=== PATIENT | female | born 1980 | race African-American/Black ===

== ENCOUNTER 2017-02-05 15:25 | Emergency (ER) | payer MEDICAID ==
[~2017-02-05] VITALS: Ht 167.6 cm; Wt 113.4 kg
[~2017-02-05 15:25] MED LIST: AMOXICILLIN500 MG ORAL; HYDROCODON-ACE1 EA18 PO; IBUPROFEN600 MG ORAL; MACROBID100 MG ORAL; METRONIDAZOLE250 MG ORAL; NKM; PENICILLIN V P500 MG PO; TYLENOL EXTRA500 MG ORAL; ZOFRAN ODT4 MG ORAL
[2017-02-05] MEDS ORDERED: IBUPROFEN600 MG ORAL (15:56)
[2017-02-05] MEDS ORDERED: TESSALON PERLE100 MG ORAL (15:56)
[2017-02-05] MEDS ORDERED: AMOXICILLIN500 MG ORAL (15:56)
[2017-02-05 16:09] VITALS: BP 111/76
--- NOTE | 2017-02-05 22:55 | Emergency Room Report ---
History of Present Illness General Chief Complaint: Sore Throat Source: Patient Present Illness HPI The pt is a 36 yo F presenting for sore throat and cough for the past 2 days. Pain is worsening and is now a 7/10 dull ache. Does not radiate. Pain worse with cough. She denies any sick contacts or recent travel. She has not tried any medications. She denies any other symptoms such as N, V, F, chills, SOB, CP , rash, hemoptysis Allergies: Coded Allergies: No Known Allergies (Unverified , 05/21/13) Patient History Past Medical History: see triage record Pertinent Family History: none Last Menstrual Period: 02/03/17 Now: No Reviewed Nursing Documentation: PMH: Agreed, PSxH: Agreed Nursing Documentation-PMH Past Medical History: No Stated History Review of Systems All Other Systems: negative except mentioned in HPI Physical Exam Vital Signs Date Time Temp Pulse Resp B/P Pulse Ox O2 Delivery O2 Flow Rate FiO2 02/05/17 15:42 98.2 80 18 122/81 100 Room Air Sp02 EP Interpretation: reviewed, normal General Appearance: no apparent distress, alert, GCS 15, non-toxic Head: normocephalic, atraumatic Eyes: bilateral eye PERRL, bilateral eye normal inspection ENT: hearing grossly normal, no angioedema, normal voice, tonsillar swelling, pharyngeal erythema, tonsillar exudate Neck: full range of motion, supple/symm/no masses Respiratory: chest non-tender, lungs clear, normal breath sounds, speaking full sentences Musculoskeletal: back normal, gait/station normal, normal range of motion, non- tender Neurologic: alert, oriented x3, responsive, motor strength/tone normal, sensory intact, speech normal Psychiatric: judgement/insight normal, memory normal, mood/affect normal, no suicidal/homicidal ideation Skin: normal color, no rash, warm/dry, well hydrated Lymphatic: adenopathy Medical Decision Making PA Attestation Dr. Enamorado is my supervising physician. Patient management was discussed with my supervising physician Diagnostic Impression: Primary Impression: pharyngitis ER Course The pt is a 36 yo F presenting for sore throat and cough for the past 2 days Differential diagnosis include but not limited to pharyngitis, sinusitis, AOM, bronchitis, PNA Physical exam: Vitals within normal limits. Afebrile. No apparent distress HEENT exam: There is bilateral tonsillar edema, erythema, and exudate. Uvula midline. Moist mucous membranes. There is bilateral cervical lymphadenopathy. Lungs are clear to auscultation bilaterally Skin is warm and dry. No rash The patient will be discharged home with a prescription for amoxicillin and is given ER precautions. Patient will followup with primary care Last Vital Signs Date Time Temp Pulse Resp B/P Pulse Ox O2 Delivery O2 Flow Rate FiO2 02/05/17 16:09 98.0 76 17 111/76 98 Room Air Status: improved Disposition: HOME, SELF-CARE Condition: Improved Scripts Benzonatate* (TESSALON PERLE*) 100 Mg Capsule 100 MG ORAL THREE TIMES A DAY, #21 PERLE Prov: ANTOINE FARFAN.A. 02/05/17 Amoxicillin* (AMOXIL*) 500 Mg Capsule 500 MG ORAL Q12HR, #20 CAP Prov: ANTOINE FARFAN.A. 02/05/17 Ibuprofen* (MOTRIN*) 600 Mg Tablet 600 MG ORAL Q8H Y for For Pain, #30 TAB 0 Refills Prov: ANTOINE FARFAN.A. 02/05/17 Referrals: [facility],REFERRING (PCP) Patient Instructions: Pharyngitis Additional Instructions: I discussed my findings with the patient. All questions and concerns have been answered. Treatment and medication compliance have been addressed. I advised the patient that they need to follow up with PMD in 3-5 days. Return to ED if pain remains or worsens, cough worsens or remains, you notice blood in your sputum, you notice wheezing, you experience a fever, or if needed for any reason. Patient verbalized understanding of discharge instructions. ANTOINE FARFAN Feb 05, 2017 22:55
== END 2017-02-05 16:09 | disposition home or self-care (01) ==
LOC: EMR 16:08
DX: J02.9 Acute pharyngitis, unspecified (principal)
CPT/HCPCS: 99284

== ENCOUNTER → 2017-05-20 | Emergency (ER) | payer MEDICAID ==
[~2017-05-20] VITALS: Ht 170.2 cm; Wt 113.4 kg
[~2017-05-20] MED LIST changes: +ARTIFICIAL TEAR15 ML LEFT EYE; +BENADRYL ALLERG25 M1 PO; +EPINASTINE HCL5 ML OP; +TESSALON PERLE100 MG ORAL
--- NOTE | 2017-05-20 20:01 | Emergency Room Report ---
History of Present Illness General Chief Complaint: Eye Problems Source: Patient Present Illness HPI 37 YO Female presents to the ED c/o swelling and itching to the left eye lid, and eye x 1 hour. pt. reports increased lacrimation. Pt. denies sneezing, cough , wheezing, swelling of the lips or tongue, denies itchy lesions elsewhere on the skin, or eye pain. pt. states she was outside at work when her eye began itching and started to swell. pt. denies trauma or fall. pt. denies changes in vision of the affected eye. pt. denies photophobia, floaters, loss of vision, or hx of foreign body in the eye. pt. denies contact lens use. Pt. took benadryl [employer]CHIT[employer]. denies d/c from the eye. Allergies: Coded Allergies: No Known Allergies (Unverified , 05/20/17) Patient History Past Medical History: see triage record Past Surgical History: none Pertinent Family History: none Last Menstrual Period: 2 days ago Now: No Immunizations: UTD Reviewed Nursing Documentation: PMH: Agreed, PSxH: Agreed Nursing Documentation-PMH Past Medical History: No Stated History Review of Systems All Other Systems: negative except mentioned in HPI Physical Exam Vital Signs Date Time Temp Pulse Resp B/P Pulse Ox O2 Delivery O2 Flow Rate FiO2 05/20/17 19:21 98.1 88 16 133/78 99 Room Air Sp02 EP Interpretation: reviewed, normal General Appearance: no apparent distress, alert, GCS 15, non-toxic Head: normocephalic, atraumatic Eyes: left eye lid inflammation - edema noted to the upper and lower left eye lid in addition to the lateral portion of the sclera. , bilateral eye EOMI, bilateral eye PERRL, bilateral eye normal inspection, bilateral eye visual acuity - left eye 20/30, right eye 20/40 ENT: hearing grossly normal, normal pharynx, no angioedema, normal voice Neck: full range of motion, supple/symm/no masses Respiratory: chest non-tender, lungs clear, normal breath sounds, speaking full sentences Cardiovascular #1: regular rate, rhythm, no edema Musculoskeletal: back normal, gait/station normal, normal range of motion, non- tender Neurologic: alert, oriented x3, responsive, motor strength/tone normal, sensory intact, speech normal Psychiatric: judgement/insight normal, memory normal, mood/affect normal Skin: normal color, warm/dry, well hydrated, rash - swelling, and erythema to the left upper and lower eyelid with progression to the temporal area of the left side of face. no increased temperature to palpation. Medical Decision Making PA Attestation Dr. Maguire is my supervising Physician whom patient management has been discussed with. Diagnostic Impression: Primary Impression: Chemosis of left conjunctiva Additional Impression: Allergic conjunctivitis Qualified Codes: H10.12 - Acute atopic conjunctivitis, left eye ER Course 37 YO Female presents to the ED c/o swelling and itching to the left eye lid, and eye x 1 hour. pt. reports increased lacrimation. Pt. denies sneezing, cough , wheezing, swelling of the lips or tongue, denies itchy lesions elsewhere on the skin, or eye pain. pt. states she was outside at work when her eye began itching and started to swell. pt. denies trauma or fall. pt. denies changes in vision of the affected eye. pt. denies photophobia, floaters, loss of vision, or hx of foreign body in the eye. pt. denies contact lens use. denies d/c from the eye. Ddx considered but are not limited to: corneal abrasion, acute glaucoma, globe rupture, FB, Corneal Ulcer, conjunctivitis. Iridis, orbital cellulitis,keratitis , sinusitis just to name a few. Vital signs: are WNL, pt. is afebrile H&PE are most consistent with: allergic conjunctivitis and chemosis of the left eye. ORDERS: none at this time. ED INTERVENTIONS: none at this time. d/w pt. she will be d/c with rx for eye drops for allergic reactions of the eyes. pt. declined work note. DISCHARGE: At this time pt. is stable for d/c to home. Will provide printed patient care instructions, and any necessary prescriptions. Care plan and follow up instructions have been discussed with the patient prior to discharge. Last Vital Signs Date Time Temp Pulse Resp B/P Pulse Ox O2 Delivery O2 Flow Rate FiO2 05/20/17 19:21 98.1 88 16 133/78 99 Room Air Disposition: HOME, SELF-CARE Condition: Stable Scripts Dextran 70/Hypromellose (ARTIFICIAL TEARS EYE DROPS*) 15 Ml Drops 1 DROP LEFT EYE QID, #15 ML 0 Refills Prov: Corey,Anne-Marie P.A. 05/20/17 Diphenhydramine Hcl (BENADRYL ALLERGY) 25 Mg Tablet 25 MG PO QID, #20 TAB Prov: Anne-Marie Corey 05/20/17 Epinastine Hcl (EPINASTINE HCL) 5 Ml Drops 1 DROP OP BID for 5 Days, #5 ML Prov: Anne-Marie Corey 05/20/17 Patient Instructions: Alcaftadine eye solution Additional Instructions: Take medications as directed. Follow up with a Primary Care Provider in 3-5 days, even if your symptoms have resolved. --Please review list of primary care clinics, if you do not already have a primary care provider Return sooner to ED if new symptoms occur, or current symptoms become worse. Do not drink alcohol, drive, or operate heavy machinery while taking benadryl as this may cause drowsiness. - Please note that this Emergency Department Report was dictated using [email or web address] fin[employer] technology software, occasionally this can lead to erroneous entry secondary to interpretation by the dictation equipment. Anne-Marie Corey May 20, 2017 20:01
[2017-05-20 20:32] VITALS: BP 133/78
[2017-05-20 20:33] VITALS: BP 133/78
== END | disposition home or self-care (01) ==
LOC: EMR 19:58
DX: H11.422 Conjunctival edema, left eye (principal); H10.12 Acute atopic conjunctivitis, left eye
CPT/HCPCS: 99284

== ENCOUNTER 2018-01-30 21:07 | Emergency (ER) | payer MEDICAID ==
[~2018-01-30] VITALS: Ht 170.2 cm; Wt 108.9 kg
[2018-01-30 21:20] VITALS: BP 138/78
--- NOTE | 2018-01-30 21:27 | Emergency Room Report ---
History of Present Illness General Chief Complaint: Eye Problems Source: Patient Present Illness HPI Is a 37-year-old female with no significant past medical history. She presents with chief complaint of eye irritation. She said she was cleaning at home and some chemical or dust got into her eye and she was rubbing it. It was red and irritated. 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 Denies any cough or congestion. Denies any nausea vomiting. No visual problem. Allergies: Coded Allergies: No Known Allergies (Unverified , 05/20/17) Patient History Past Medical History: see triage record, old chart reviewed Past Surgical History: none Pertinent Family History: none Social History: Denies: smoking Last Menstrual Period: 12/26/17 Now: No : 1 Para: 1 Immunizations: other Reviewed Nursing Documentation: PMH: Agreed; PSxH: Agreed Nursing Documentation-PMH Past Medical History: No Stated History Review of Systems Eye: Reports: eye pain; Denies: blurred vision ENT: Denies: ear pain, nose congestion, throat swelling Respiratory: Denies: cough, shortness of breath Cardiovascular: Denies: chest pain, palpitations Gastrointestinal: Denies: abdominal pain, diarrhea, nausea, vomiting Musculoskeletal: Denies: back pain, joint pain Skin: Denies: rash Neurological: Denies: headache, numbness Endocrine: Denies: increased thirst, increased urine Hematologic/Lymphatic: Denies: easy bruising All Other Systems: negative except mentioned in HPI Physical Exam Vital Signs Date Time Temp Pulse Resp B/P (MAP) Pulse Ox O2 Delivery O2 Flow Rate FiO2 01/30/18 21:12 98.4 97 18 142/88 100 Room Air 98.4 vitals normal Sp02 EP Interpretation: reviewed, normal General Appearance: well appearing, no apparent distress, alert Head: normocephalic, atraumatic Eyes: bilateral eye PERRL, bilateral eye EOMI ENT: hearing grossly normal, normal pharynx Neck: full range of motion, supple, no meningismus Respiratory: chest non-tender, lungs clear, normal breath sounds Cardiovascular #1: regular rate, rhythm, no murmur Gastrointestinal: normal bowel sounds, non tender, no mass, no organomegaly, no bruit, non-distended Musculoskeletal: back normal, gait/station normal, normal range of motion Psychiatric: mood/affect normal Skin: warm/dry Medical Decision Making Diagnostic Impression: Primary Impression: Conjunctivitis Qualified Codes: H10.33 - Unspecified acute conjunctivitis, bilateral ER Course Patient presents with eye irritation. This may be an early viral conjunctivitis or chemical conjunctivitis. No discharge or finding consistent with bacterial infection. We'll discharge home. 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 Last Vital Signs Date Time Temp Pulse Resp B/P (MAP) Pulse Ox O2 Delivery O2 Flow Rate FiO2 01/30/18 21:12 98.4 97 18 142/88 100 Room Air 98.4 Status: unchanged Disposition: HOME, SELF-CARE Condition: Stable Patient Instructions: Chemical Conjunctivitis Additional Instructions: Follow-up with your doctor in 7 days. Return if symptom worsen. CHANTEL HARRELL M.D. Jan 30, 2018 21:27
[2018-01-30 21:30] VITALS: BP 127/80
== END 2018-01-30 21:33 | disposition home or self-care (01) ==
LOC: EMR 21:20
DX: H10.9 Unspecified conjunctivitis (principal)
CPT/HCPCS: 99282

== ENCOUNTER 2018-06-14 21:11 | Emergency (ER) | payer MEDICAID ==
[~2018-06-14] VITALS: Ht 170.2 cm; Wt 108.0 kg
[2018-06-14] MEDS ORDERED: NKM (21:25)
--- NOTE | 2018-06-14 21:37 | Emergency Room Report ---
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 She is on her feet a lot. She presents with left heel pain. His been ongoing for about a week. Worse with walking. Better over the weekend. Pain is throbbing in nature. 7 out of 10. No trauma. No fever chills. Denies any other complaint. Allergies: Coded Allergies: No Known Allergies (Unverified , 05/20/17) Patient History Past Medical History: see triage record, old chart reviewed Past Surgical History: none Pertinent Family History: none Social History: Denies: smoking Last Menstrual Period: May Now: No Immunizations: other Reviewed Nursing Documentation: PMH: Agreed; PSxH: Agreed Nursing Documentation-PMH Past Medical History: No Stated History Review of Systems Eye: Denies: eye pain, blurred vision ENT: Denies: ear pain, nose congestion, throat swelling Respiratory: Denies: cough, shortness of breath Cardiovascular: Denies: chest pain, palpitations Gastrointestinal: Denies: abdominal pain, diarrhea, nausea, vomiting Musculoskeletal: Reports: joint pain; Denies: back pain Skin: Denies: rash Neurological: Denies: headache, numbness Endocrine: Denies: increased thirst, increased urine Hematologic/Lymphatic: Denies: easy bruising All Other Systems: negative except mentioned in HPI Physical Exam Vital Signs Date Time Temp Pulse Resp B/P (MAP) Pulse Ox O2 Delivery O2 Flow Rate FiO2 06/14/18 21:21 98.1 99 18 122/84 96 Room Air 98.1 vitals normal Sp02 EP Interpretation: reviewed, normal General Appearance: well appearing, no apparent distress, alert Head: normocephalic, atraumatic Eyes: bilateral eye PERRL, bilateral eye EOMI ENT: hearing grossly normal, normal pharynx Neck: full range of motion, supple, no meningismus Respiratory: chest non-tender, lungs clear, normal breath sounds Cardiovascular #1: regular rate, rhythm, no murmur Gastrointestinal: normal bowel sounds, non tender, no mass, no organomegaly, no bruit, non-distended Musculoskeletal: back normal, gait/station normal, normal range of motion, other - Left foot: Mild tenderness at the base of the heel with insertion of the fascia. No redness. No warmth. No edema. Pulses normal. Neurologic: alert, oriented x3 Psychiatric: mood/affect normal Skin: warm/dry Medical Decision Making Diagnostic Impression: Primary Impression: Pain of left heel ER Course Patient with left heel pain. This may be secondary to plantar fasciitis or tendinitis. No evidence of fracture or infection. We'll discharge home. Other X-Ray Diagnostic Results Other X-Ray Diagnostic Results : X-Ray ordered: Left foot x-rays # of Views/Limited Vs Complete: 3 View Indication: Pain EP Interpretation: Yes Interpretation: no dislocation, no soft tissue swelling, no fractures Impression: No acute disease Electronically Signed by: Gonzales Perry MD Last Vital Signs Date Time Temp Pulse Resp B/P (MAP) Pulse Ox O2 Delivery O2 Flow Rate FiO2 06/14/18 21:21 98.1 99 18 122/84 96 Room Air 98.1 Status: improved Disposition: HOME, SELF-CARE Condition: Stable Scripts Ibuprofen* (MOTRIN*) 600 Mg Tablet 600 MG ORAL THREE TIMES A DAY, #30 TAB 0 Refills Prov: GONZALES PERRY M.D. 06/14/18 Additional Instructions: Follow-up with your doctor in 7 days. Elevate your foot. Return if symptom worsen. You may be referred to see a metal patternmaker apprentice. GONZALES PERRY M.D. Jun 14, 2018 21:37
[2018-06-14] MEDS ORDERED: IBUPROFEN600 MG ORAL (21:50)
[2018-06-14 21:56] VITALS: BP 122/84
--- NOTE | 2018-06-14 22:13 | Diagnostic Imaging Report ---
EXAM: XR Left Foot Complete, 3 or More Views CLINICAL HISTORY: PAIN TECHNIQUE: Frontal, lateral and oblique views of the left foot. COMPARISON: No relevant prior studies available. FINDINGS: Bones/joints: No acute fracture or malalignment. Tiny dorsal calcaneal enthesophyte. Soft tissues: Unremarkable. No radiopaque foreign body. IMPRESSION: No acute fracture or malalignment.
== END 2018-06-14 21:50 | disposition home or self-care (01) ==
LOC: EMR 21:30
DX: M77.52 Other enthesopathy of left foot and ankle (principal); M25.572 Pain in left ankle and joints of left foot; R26.2 Difficulty in walking, not elsewhere classified; F17.200 Nicotine dependence, unspecified, uncomplicated
CPT/HCPCS: 99283

== ENCOUNTER 2019-01-17 21:39 | Emergency (ER) | payer SELFPAY ==
[~2019-01-17] VITALS: Ht 167.6 cm; Wt 90.3 kg
--- NOTE | 2019-01-17 22:05 | NUR ---
ED Nurse Note: patient walked in with steady gait c/o right knee pain since yesterday. AAO x4, VSS at this time, skin is dry, intact, warm to touch.
[2019-01-17] MEDS ORDERED: IBUPROFEN600 MG ORAL (22:23)
--- NOTE | 2019-01-17 22:23 | Emergency Room Report ---
History of Present Illness General Chief Complaint: Lower Extremity Injury Source: Patient Present Illness HPI Is a 38-year-old female with no significant past medical history. She presents with chief complaint of right knee swelling. No trauma. She works in security. She also said that she cleans a lot at home. She's also on her knee doing this. There is minimal pain. No trouble with walking. No fever chills but no nausea vomiting. She came in because her boyfriend's here for different complaint. Allergies: Coded Allergies: No Known Allergies (Unverified , 05/20/17) Patient History Past Medical History: see triage record, old chart reviewed Past Surgical History: none Pertinent Family History: none Social History: Denies: smoking Last Menstrual Period: 01/12/2019 Now: No Immunizations: other Reviewed Nursing Documentation: PMH: Agreed; PSxH: Agreed Nursing Documentation-PMH Past Medical History: No Stated History Review of Systems Eye: Denies: eye pain, blurred vision ENT: Denies: ear pain, nose congestion, throat swelling Respiratory: Denies: cough, shortness of breath Cardiovascular: Denies: chest pain, palpitations Gastrointestinal: Denies: abdominal pain, diarrhea, nausea, vomiting Musculoskeletal: Reports: joint swelling; Denies: back pain, joint pain Skin: Denies: rash Neurological: Denies: headache, numbness Endocrine: Denies: increased thirst, increased urine Hematologic/Lymphatic: Denies: easy bruising All Other Systems: negative except mentioned in HPI Physical Exam Vital Signs Date Time Temp Pulse Resp B/P (MAP) Pulse Ox O2 Delivery O2 Flow Rate FiO2 01/17/19 21:48 97.5 104 16 135/86 97 vitals normal Sp02 EP Interpretation: reviewed, normal General Appearance: well appearing, no apparent distress, alert Head: normocephalic, atraumatic Eyes: bilateral eye PERRL, bilateral eye EOMI ENT: hearing grossly normal, normal pharynx Neck: full range of motion, supple, no meningismus Respiratory: chest non-tender, lungs clear, normal breath sounds Cardiovascular #1: regular rate, rhythm, no murmur Gastrointestinal: normal bowel sounds, non tender, no mass, no organomegaly, no bruit, non-distended Musculoskeletal: back normal, gait/station normal, normal range of motion, other - Right knee: There is mild tenderness to the lateral aspect of the knee.. Minimal effusion. Knee is stable. Patient walking without any difficulty. Psychiatric: mood/affect normal Skin: warm/dry Medical Decision Making Diagnostic Impression: Primary Impression: Knee effusion, right ER Course Patient with minimal knee effusion. No evidence of septic joint. No evidence of any instability. We'll discharge home. Last Vital Signs Date Time Temp Pulse Resp B/P (MAP) Pulse Ox O2 Delivery O2 Flow Rate FiO2 01/17/19 21:48 97.5 104 16 135/86 97 Status: unchanged Disposition: HOME, SELF-CARE Condition: Stable Scripts Ibuprofen* (MOTRIN*) 600 Mg Tablet 600 MG ORAL THREE TIMES A DAY, #30 TAB 0 Refills Prov: Gonzales Perry MD 01/17/19 Patient Instructions: Knee Sprain Additional Instructions: Nitin wrap to the knee. Ice pack to the area. Follow-up with your doctor in 7 days. Return if worse. Gonzales Perry MD Jan 17, 2019 22:23
[2019-01-17 22:35] VITALS: BP 135/86
--- NOTE | 2019-01-17 22:36 | NUR ---
ED Nurse Note: Pt cleared by health care Provider for discharge. DC instructions/prescription was given and explained to pt and verbalized understanding of teachings. All medical deviecs such as ID band removed. Pt is AAO x4, ambulatory and left with all personal belongings.
== END 2019-01-17 22:35 | disposition home or self-care (01) ==
LOC: EMR 22:20
DX: M25.461 Effusion, right knee (principal)
CPT/HCPCS: 99282